=== PATIENT | male | born 1955 | race Caucasian/White ===

== ENCOUNTER 2024-07-04 05:17 | Emergency (ER) | payer BC ==
[~2024-07-04] VITALS: Ht 177.8 cm; Wt 83.0 kg
[2024-07-04] MEDS ORDERED: HYDROCODON-ACE1 EA10 PO (05:24)
[2024-07-04] MEDS ORDERED: LOSARTAN POTAS100 MG PO (05:25)
[2024-07-04] MEDS ORDERED: ZOLPIDEM TARTRA10 MG PO (05:25)
[2024-07-04] MEDS ORDERED: MELOXICAM15 MG PO (05:25)
[2024-07-04] MEDS ORDERED: KETOROLAC TROMETHAMINE 60 MG/2 ML VIAL IM ONE (05:30)
[2024-07-04 05:42] LABS: BASOPHILS 0.5 % (0.2-1.2); EOSINOPHILS 1.5 % (0.8-7.0); HEMATOCRIT 28.9 % (40.1-51.0); HEMOGLOBIN 9.7 g/dL (13.7-17.5); LYMPHOCYTES 31.3 % (21.8-53.1); MCH 33.2 PG (25.7-32.2); MCHC 33.6 g/dL (32.3-36.5); MONOCYTES 8.3 % (5.3-12.2); PLATELET COUNT 212 K/uL (163-337); RBC 2.92 M/uL (4.63-6.08)
[2024-07-04 06:04] LABS: ALBUMIN 2.8 g/dL (3.4-5.0); ALBUMIN/GLOBULIN RATIO 0.76 (1.1-2.4); ANION GAP 18.1 (7-21); BILIRUBIN, TOTAL 0.6 mg/dL (0.2-1.0); BUN/CREATININE RATIO 17.36 (6.0-28.6); CALCIUM 9.1 mg/dL (8.5-10.1); CREATININE, SERUM 1.67 mg/dL (0.70-1.30); MAGNESIUM 1.8 mg/dL (1.8-2.4); POTASSIUM 4.1 mmol/L (3.5-5.1); PROTEIN, TOTAL 6.5 g/dL (6.4-8.2)
[2024-07-04] MEDS ORDERED: VITAMIN B-121000 MC2 SL (06:14)
[2024-07-04] MEDS ORDERED: FOLIC ACID1 MG PO (06:14)
[2024-07-04] MEDS ORDERED: COLCHICINE0.6 M1 PO (06:14)
[2024-07-04] MEDS ORDERED: COLCHICINE 0.6 MG TAB PO ONE (06:15)
[2024-07-04] MEDS ORDERED: CYANOCOBALAMIN 1,000 MCG TAB PO ONE (06:15)
[2024-07-04] MEDS ORDERED: FOLIC ACID 1 MG TAB PO ONE (06:15)
[2024-07-04] MEDS ORDERED: methylPREDNISolone 4 MG HOME.PACK PO ONE (06:30)
[2024-07-04] MEDS ORDERED: HYDROCODONE BIT/ACETAMINOPHEN 5/325 MG 1 TAB HOME.PACK PO ONE (06:30)
[2024-07-04 06:42] VITALS: BP 150/89
== END 2024-07-04 06:35 | disposition home or self-care (01) ==
LOC: ED 05:17
PROVIDERS: Family Medicine
DX: M10.9 Gout, unspecified (principal); D75.89 Other specified diseases of blood and blood-forming organs; I10 Essential (primary) hypertension; Z79.899 Other long term (current) drug therapy
CPT/HCPCS: 36415; 80053; 83735; 84550; 85025; 96372; 99283; A9270; J1885